=== PATIENT | female | born 1945 | race Caucasian/White ===

== ENCOUNTER 2018-01-14 08:53 | Day surgery (SDC) | payer MEDICARE ==
[~2018-01-14] VITALS: Ht 165.1 cm; Wt 82.0 kg
[2018-01-14] VITALS (9 sets, daily range): BP systolic 108–134; BP diastolic 43–57
[2018-01-14] MEDS ORDERED: sod bicarbonate 150mEq in D5W 1,150 ML IV ONE (09:15)
[2018-01-14] MEDS ORDERED: diphenhydrAMINE 25mg capsule PO PRN (09:20)
[2018-01-14 09:36] LABS: BASOPHILS % (AUTO) 1.2 % (0-1); EOSINOPHILS % (AUTO) 1.7 % (0-6); LYMPHOCYTES % (AUTO) 34.1 % (21-51); MEAN CORPUSCULAR HEMOGLOBIN 32.5 PG (27.0-31.0); MEAN CORPUSCULAR VOLUME 95.5 FL (78-98); MEAN PLATELET VOLUME 9.6 FL (7.4-10.4); MONOCYTES # (AUTO) 0.3 X10'3 (0-0.9); MONOCYTES % (AUTO) 11.7 % (2-12); NEUTROPHILS # (AUTO) 1.5 X10'3 (1.8-7.7); NEUTROPHILS % (AUTO) 51.3 % (42-75); PRE OP HEMATOCRIT 36.9 % (35.0-45.0); PRE OP HEMOGLOBIN 12.5 g/dL (12.0-16.0); PRE OP PLATELET COUNT 203 X10'3 (140-440); RED BLOOD COUNT 3.86 X10'6 (4.20-5.60); RED CELL DISTRIBUTION WIDTH 14.4 % (11.5-14.5)
[2018-01-14 09:38] LABS: ALBUMIN 3.9 G/DL (3.4-5.0); ANION GAP 12 (8-16); BLOOD UREA NITROGEN 22 MG/DL (7-18); BUN/CREATININE RATIO 15.6 (6.6-38.0); CALCIUM 8.8 MG/DL (8.5-10.1); CHLORIDE 104 MMOL/L (99-107); CREATININE 1.41 MG/DL (0.40-0.90); GLUCOSE 91 MG/DL (70-104); MAGNESIUM 2.2 MG/DL (1.5-2.4); SODIUM 142 MMOL/L (135-145); TOTAL CARBON DIOXIDE 26.4 MMOL/L (24-32); eGFR 37 ML/MIN
[2018-01-14 09:45] LABS: PROTHROMBIN TIME 10.2 SECONDS (9.0-12.0)
[2018-01-14 09:58] LABS: PLATELET ESTIMATE NORMAL; TOTAL CELLS COUNTED 100
[2018-01-14] MEDS ORDERED: iron PO (10:02)
[2018-01-14] MEDS ORDERED: LEVO50TA PO (10:02)
[2018-01-14] MEDS ORDERED: NITR0.4T51 SL (10:02)
[2018-01-14] MEDS ORDERED: AMLO2.5T2 PO (10:02)
[2018-01-14] MEDS ORDERED: LOVA20TA2 PO (10:02)
[2018-01-14] MEDS ORDERED: LISI-604 PO (10:02)
[2018-01-14] MEDS ORDERED: AMIO200T54 PO (10:02)
[2018-01-14] MEDS ORDERED: ASPI-1265 PO (10:02)
[2018-01-14] MEDS ORDERED: LIDOcaine 1% (10mg/ml)w/preservative injection 20ml MDV ONE (10:20)
[2018-01-14] MEDS ORDERED: midazolam 2 mg/2 ml injection ONE ×2 (10:20→10:37)
[2018-01-14] MEDS ORDERED: fentaNYL/PF 50MCG/1 ML 2ML syringe ONE (10:20)
[2018-01-14] MEDS ORDERED: iohexol 350 MG/ML 50ML vial IV ONE (10:20)
[2018-01-14] MEDS ORDERED: iohexol 350MG/ML 100ml bottle IV ONE (10:20)
== END 2018-01-14 14:45 | disposition home or self-care (01) ==
LOC: SSTAY O 08:53
PROVIDERS: ATTEND Internal Medicine Cardiovascular Disease
DX: I25.10 Atherosclerotic heart disease of native coronary artery without angina pectoris (principal); I35.0 Nonrheumatic aortic (valve) stenosis; I05.8 Other rheumatic mitral valve diseases; I49.5 Sick sinus syndrome; I48.91 Unspecified atrial fibrillation; I10 Essential (primary) hypertension; E78.5 Hyperlipidemia, unspecified; M19.90 Unspecified osteoarthritis, unspecified site; I48.0 Paroxysmal atrial fibrillation; E03.9 Hypothyroidism, unspecified; Z88.0 Allergy status to penicillin; Z88.1 Allergy status to other antibiotic agents; Z88.6 Allergy status to analgesic agent; Z79.82 Long term (current) use of aspirin; Z86.73 Personal history of transient ischemic attack (TIA), and cerebral infarction without residual deficits; Z87.11 Personal history of peptic ulcer disease; Z90.89 Acquired absence of other organs; Z98.41 Cataract extraction status, right eye; Z98.42 Cataract extraction status, left eye; Z95.828 Presence of other vascular implants and grafts; Z95.0 Presence of cardiac pacemaker; Z88.8 Allergy status to other drugs, medicaments and biological substances; Z98.890 Other specified postprocedural states; Z79.899 Other long term (current) drug therapy; Z82.49 Family history of ischemic heart disease and other diseases of the circulatory system
CPT/HCPCS: 36415; 80048; 83735; 85025; 85610; 93005; 93460; 99152; 99153; A6257; C1760; C1769; C1894; J1644; J2001; J2250; J3010; Q9967; A4620